=== PATIENT | male | born 1970 | race Caucasian/White ===

== ENCOUNTER 2021-03-15 09:10 | Emergency (ER) | payer BC, OTHER ==
[2021-03-15] MEDS: Bupivacaine 0.5% 10 ML SDV INJECT ONE (09:19)
[2021-03-15] MEDS: Diphtheria,Pertussis(Acell),Tetanus Vaccine 0.5 ML Syringe IM ONE (09:49)
[2021-03-15] MEDS: Bupivacaine 0.5% 10 ML SDV ONE (09:49)
[2021-03-15] MEDS ORDERED: Bacitracin Oint 1 GM U/D Packet TOP ONE (10:05)
[2021-03-15] MEDS ORDERED: Acetaminophen/HYDROcodone 325-10 MG Tab PO PRN ×2 (10:05→10:06)
--- NOTE | 2021-03-15 10:58 | EDM.PDOC ---
ED HPI GENERAL MEDICAL PROBLEM - General Chief Complaint: Upper Extremity Injury/Pain Stated Complaint: Crush Injury to R Thumb Time Seen by Provider: 03/15/21 09:30 Source of Information: Reports: Patient, RN History Limitations: Reports: No Limitations - History of Present Illness INITIAL COMMENTS - FREE TEXT/NARRATIVE: Pt. presents to ER with complaints of crush injury to R thumb. He states that this happened at work at [employer]. He states that he got the digit stuck in a hydraulic clamp. Denies any injury elsewhere. his tetanus is not up to date. - Related Data Allergies Allergy/AdvReac Type Severity Reaction Status Date / Time No Known Allergies Allergy Verified 03/15/21 09:11 Home Meds: Home Meds . [No Known Home Meds] 03/15/21 [History] Past Medical History - Past Surgical History GI Surgical History: Reports: Cholecystectomy Social & Family History - Tobacco Use Tobacco Use Status *Q: Current Every Day Tobacco User Years of Tobacco use: 32 Packs/Tins Daily: 1 Review of Systems - Review of Systems Review Of Systems: Comprehensive ROS is negative, except as noted in HPI. ED EXAM, GENERAL - Physical Exam Exam: See Below General Appearance: Alert, WD/WN, No Apparent Distress Extremities: Other (Large defect/area of missing/macerated tissue to lateral aspect of the R thumb. No obvious gross bony deformity noted. ) ED TRAUMA EXTREMITY PROCEDURES - Laceration/Wound Repair Right Lateral Digit - 1st (Thumb) Lac/Wound Length In cm: 3 Appearance: Subcutaneous, Muscle Distal NVT: Neuro & Vascular Intact Anesthetic Type: Digital Local Anesthesia - Bupivicaine (Marcaine): 0.5% Plain Local Anesthetic Volume: 4cc Skin Prep: Chlorhexidine (Hibiciens), Saline Saline Irrigation (cc's): 500 Exploration/Debridement/Repair: Wound Explored Progress/Comments: There were no suturable areas on this injury. Injury was irrigated with 500ml of normal saline. Digital block was placed with 0.5% marcaine. The macerated and devitalized tissue was excised. No sutures or other repairs were performed, and injury will be allowed to heal via secondary intention. Course - Vital Signs Last Recorded V/S: Last Vital Signs Temp 36.4 C 03/15/21 09:30 Pulse 82 03/15/21 09:30 Resp 16 03/15/21 09:30 BP 144/83 H 03/15/21 09:30 Pulse Ox 98 03/15/21 09:30 - Orders/Labs/Meds Orders: Active Orders 24 hr Category Date Time Status Fingers Thumb Rt F5 [CR] Stat Exams 03/15/21 09:34 Taken Meds: Medications Discontinued Medications Generic Name Dose Route Start Last Admin Trade Name Freq PRN Reason Stop Dose Admin Hydrocodone Bitart/Acetaminophen 1 tab 03/15/21 10:05 Acetaminophen/Hydrocodone 325-10 Mg Tab PO Q6H PRN Pain Hydrocodone Bitart/Acetaminophen 1 tab 03/15/21 10:06 Acetaminophen/Hydrocodone 325-10 Mg Tab PO Q6H PRN Pain Bacitracin 1 dose 03/15/21 10:05 Bacitracin Oint 1 Gm U/D Packet TOP 03/15/21 10:06 ONETIME ONE Bupivacaine HCl 10 ml 03/15/21 09:16 03/15/21 09:19 Bupivacaine 0.5% 10 Ml Sdv INJECT 03/15/21 09:17 10 ml ONETIME ONE Administration Bupivacaine HCl Confirm 03/15/21 09:19 03/15/21 09:49 Bupivacaine 0.5% 10 Ml Sdv Administered 03/15/21 09:20 Not Given Dose 10 ml .ROUTE .STK-MED ONE Diphtheria/Tetanus/Acell Pertussis 0.5 ml 03/15/21 09:36 03/15/21 09:49 Diphtheria,Pertussis(Acell),Tetanus Vaccine 0.5 Ml Syringe IM 03/15/21 09:37 0.5 ml .ONCE ONE Administration - Radiology Interpretation Free Text/Narrative:: No obvious fracture noted in radiographs of thumb Departure - Departure Time of Disposition: 11:00 Disposition: Home, Self-Care 01 Clinical Impression: Crushing injury of thumb, right - Discharge Information Referrals: Anthony Roberto PA [Primary Care Provider] - Forms: ED Department Discharge Additional Instructions: Keep dressing on until Wednesday. Change dressing then. Change dressing once daily after that. Off work until Wednesday. Keflex 500mg 1 cap 4 times a day for 7 days Ibuprofen 200mg 3 tabs every 6 hours as needed for pain [place] 10/325mg 1 tab every 6 hours as needed for severe pain. Sepsis Event Note (ED) - Evaluation Sepsis Screening Result: No Definite Risk - Problem List Review Problem List Initiated/Reviewed/Updated: Yes - My Orders Last 24 Hours: My Active Orders 03/15/21 09:34 Fingers Thumb Rt F5 [CR] Stat - Assessment/Plan Last 24 Hours: My Active Orders 03/15/21 09:34 Fingers Thumb Rt F5 [CR] Stat Plan: Keep dressing on until Wednesday. Change dressing then. Change dressing once daily after that. Off work until Wednesday. Keflex 500mg 1 cap 4 times a day for 7 days Ibuprofen 200mg 3 tabs every 6 hours as needed for pain [place] 10/325mg 1 tab every 6 hours as needed for severe pain.
== END 2021-03-15 10:40 | disposition home or self-care (01) ==
LOC: LL.ED 09:10
DX: S67.01XA Crushing injury of right thumb, initial encounter (principal); S61.011A Laceration without foreign body of right thumb without damage to nail, initial encounter; Z72.0 Tobacco use; Z23 Encounter for immunization; W23.0XXA Caught, crushed, jammed, or pinched between moving objects, initial encounter; Y92.89 Other specified places as the place of occurrence of the external cause; Y99.0 Civilian activity done for income or pay
CPT/HCPCS: 12002; 64450; 73140-F5; 90471; 90715; 99283; 99283-25; J3490